=== PATIENT | female | born 1955 | race Caucasian/White ===

== ENCOUNTER → 2020-11-11 | Outpatient (CLI) | payer OTHER | LOC: ECHO 12:30 | DX: I25.10 Atherosclerotic heart disease of native coronary artery without angina pectoris (principal); I07.1 Rheumatic tricuspid insufficiency; I35.0 Nonrheumatic aortic (valve) stenosis; I51.7 Cardiomegaly | CPT/HCPCS: ECHO; 93306 ==

== ENCOUNTER → 2021-02-17 | Outpatient (CLI) | payer OTHER | LOC: US 02-16 15:00 | DX: I73.9 Peripheral vascular disease, unspecified (principal); I25.10 Atherosclerotic heart disease of native coronary artery without angina pectoris | CPT/HCPCS: 93925 ==

== ENCOUNTER → 2021-12-27 | Outpatient (CLI) | payer MEDICARE, OTHER | LOC: HEART 5 07:30 | DX: R00.2 Palpitations (principal) ==

== ENCOUNTER → 2022-04-16 | Outpatient (CLI) | payer MEDICARE, OTHER | LOC: KOH-I 14:23 → CT 14:30 | DX: Z87.891 Personal history of nicotine dependence (principal); R91.8 Other nonspecific abnormal finding of lung field | CPT/HCPCS: 71271 ==

== ENCOUNTER → 2022-04-25 | Outpatient (CLI) | payer MEDICARE, OTHER | LOC: US 04-24 08:30 → EXRD 09:23 → US 09:30 | DX: Z12.31 Encounter for screening mammogram for malignant neoplasm of breast (principal); Z13.820 Encounter for screening for osteoporosis; Z13.6 Encounter for screening for cardiovascular disorders; Z78.0 Asymptomatic menopausal state | CPT/HCPCS: 76706; 77063; 77067; 77080 ==